=== PATIENT | male | born 2005 | race Two or more races ===

== ENCOUNTER 2025-05-29 06:11 | Day surgery (SDC) | payer OTHER, SELFPAY ==
[2025-05-29] VITALS (11 sets, daily range): BP systolic 125–141; BP diastolic 53–75; BMI 22.3
[2025-05-29] MEDS: TYLENOL 1000 MG PO (12:20)
[2025-05-29] MEDS: CELEBREX 200 MG PO (12:20)
[2025-05-29] MEDS: NORMOSOL-R/PLASMALYTE-A 1000 IV (12:30)
[2025-05-29] MEDS: DILAUDID 0.5 MG IV (20:24)
[2025-05-29] MEDS: ROXICODONE 5 MG PO (21:19)
== END 2025-05-29 19:26 | disposition home or self-care (01) ==
LOC: SDS 06:11
PROVIDERS: ATTENDING PHYSICIAN Orthopaedic Surgery Hand Surgery; FAMILY PHYSICIAN Family Medicine
DX: S42.292A Other displaced fracture of upper end of left humerus, initial encounter for closed fracture (principal); S43.432A Superior glenoid labrum lesion of left shoulder, initial encounter; S43.005A Unspecified dislocation of left shoulder joint, initial encounter; X58.XXXA Exposure to other specified factors, initial encounter
CPT/HCPCS: 23615; C1713; 73030; 76000; C1776